=== PATIENT | male | born 1960 | race Caucasian/White ===

== ENCOUNTER → 2019-05-29 | Outpatient (CLI) | payer OTHER | LOC: BHSO 10:21 | DX: F43.10 Post-traumatic stress disorder, unspecified (principal) ==

== ENCOUNTER → 2019-06-13 | Outpatient (CLI) | payer OTHER | LOC: BHSO 13:31 | DX: F43.10 Post-traumatic stress disorder, unspecified (principal) ==

== ENCOUNTER → 2019-06-17 | Outpatient (CLI) | payer OTHER | LOC: BHSO 13:16 | DX: F43.10 Post-traumatic stress disorder, unspecified (principal) ==

== ENCOUNTER → 2019-06-24 | Outpatient (CLI) | payer OTHER | LOC: BHSO 13:22 | DX: F43.10 Post-traumatic stress disorder, unspecified (principal) ==

== ENCOUNTER → 2019-07-01 | Outpatient (CLI) | payer OTHER | LOC: BHSO 13:42 | DX: F43.10 Post-traumatic stress disorder, unspecified (principal) ==

== ENCOUNTER → 2019-07-15 | Outpatient (CLI) | payer OTHER | LOC: BHSO 13:06 | DX: F43.10 Post-traumatic stress disorder, unspecified (principal) ==

== ENCOUNTER → 2019-07-22 | Outpatient (CLI) | payer OTHER | LOC: BHSO 13:34 | DX: F43.10 Post-traumatic stress disorder, unspecified (principal) ==

== ENCOUNTER → 2019-07-29 | Outpatient (CLI) | payer OTHER | LOC: BHSO 13:44 | DX: F43.10 Post-traumatic stress disorder, unspecified (principal) ==

== ENCOUNTER → 2019-08-05 | Outpatient (CLI) | payer OTHER | LOC: BHSO 13:29 | DX: F43.10 Post-traumatic stress disorder, unspecified (principal) ==

== ENCOUNTER → 2019-08-19 | Outpatient (CLI) | payer OTHER | LOC: BHSO 13:39 | DX: F43.10 Post-traumatic stress disorder, unspecified (principal) ==

== ENCOUNTER → 2019-08-26 | Outpatient (CLI) | payer OTHER | LOC: BHSO 13:32 | DX: F43.10 Post-traumatic stress disorder, unspecified (principal) ==

== ENCOUNTER → 2019-09-02 | Outpatient (CLI) | payer OTHER | LOC: BHSO 13:10 | DX: F43.10 Post-traumatic stress disorder, unspecified (principal) ==

== ENCOUNTER → 2019-09-16 | Outpatient (CLI) | payer OTHER | LOC: BHSO 13:26 | DX: F43.10 Post-traumatic stress disorder, unspecified (principal) ==

== ENCOUNTER → 2019-09-23 | Outpatient (CLI) | payer OTHER | LOC: BHSO 13:14 | DX: F43.10 Post-traumatic stress disorder, unspecified (principal) ==

== ENCOUNTER → 2019-09-30 | Outpatient (CLI) | payer OTHER | LOC: BHSO 13:35 | DX: F43.10 Post-traumatic stress disorder, unspecified (principal) ==

== ENCOUNTER → 2019-10-07 | Outpatient (CLI) | payer OTHER | LOC: BHSO 13:20 | DX: F43.10 Post-traumatic stress disorder, unspecified (principal) ==

== ENCOUNTER → 2019-10-14 | Outpatient (CLI) | payer OTHER | LOC: BHSO 13:33 | DX: F43.10 Post-traumatic stress disorder, unspecified (principal) ==

== ENCOUNTER → 2019-11-11 | Outpatient (CLI) | payer OTHER | LOC: BHSO 13:44 | DX: F43.10 Post-traumatic stress disorder, unspecified (principal) ==

== ENCOUNTER → 2019-11-28 | Outpatient (CLI) | payer OTHER | LOC: BHSO 10:34 | DX: F43.10 Post-traumatic stress disorder, unspecified (principal) ==

== ENCOUNTER → 2019-12-09 | Outpatient (CLI) | payer OTHER | LOC: BHSO 13:28 | DX: F43.10 Post-traumatic stress disorder, unspecified (principal) ==

== ENCOUNTER → 2019-12-23 | Outpatient (CLI) | payer OTHER | LOC: BHSO 13:12 | DX: F43.10 Post-traumatic stress disorder, unspecified (principal) ==

== ENCOUNTER → 2020-01-06 | Outpatient (CLI) | payer OTHER | LOC: BHSO 13:27 | DX: F43.10 Post-traumatic stress disorder, unspecified (principal) ==

== ENCOUNTER → 2020-03-02 | Outpatient (CLI) | payer OTHER | LOC: BHSO 12:59 | DX: F43.10 Post-traumatic stress disorder, unspecified (principal) ==

== ENCOUNTER 2024-04-18 05:37 | Day surgery (SDC) | payer OTHER ==
[~2024-04-18] VITALS: Ht 175.3 cm; Wt 91.2 kg
[2024-04-18] VITALS (10 sets, daily range): BP systolic 101–122; BP diastolic 53–84; PULSE 50–68; TEMP 97.7–98.3
[~2024-04-18 05:37] MED LIST: CRESTOR20 MG PO; LAMISIL250 M1 PO; LR 1,000 ML IV SCH; ZOLOFT 100MG100 MG PO
--- NOTE | 2024-04-18 06:02 | NUR ---
Patient states develops rash if taking Aspirin. State that he is able to tolerate NSAIDS without reaction and Celebrex was given as ordered per [facility] protocol.
[2024-04-18] MEDS ORDERED: Celecoxib 200 MG CAP PO SCH (06:30)
[2024-04-18] MEDS ORDERED: Acetaminophen 500 MG TAB PO SCH ×2 (06:30→08:02)
[2024-04-18] MEDS ORDERED: Gabapentin 100 MG CAP PO SCH (06:30)
--- NOTE | 2024-04-18 06:45 | NUR ---
ORDER RECEIVED FOR TYPE AND SCREEN FROM ANGIE STRONG AND LAB NOTIFIED OF NEW ORDERS. 0655 TYPE AND SCREEN WAS DRAWN BY LAB OR ORDERED.
[2024-04-18] MEDS ORDERED: fentaNYL 50 MCG/ML 2 ML VIAL ONE ×2 (06:55→07:59)
[2024-04-18] MEDS ORDERED: Rocuronium 50 MG/5 ML Multi-Dose VIAL ONE ×3 (06:55→09:11)
[2024-04-18] MEDS ORDERED: Midazolam 2 MG/2 ML VIAL ONE (06:55)
[2024-04-18] MEDS ORDERED: NS 250 ML IV ONE (06:56)
[2024-04-18] MEDS ORDERED: Succinylcholine PF 200 MG/10 ML SYRINGE IV ONE (06:56)
[2024-04-18] MEDS ORDERED: Glycopyrrolate 0.2 MG/ML 1 ML VIAL ONE (06:57)
[2024-04-18] MEDS ORDERED: dexAMETHasone 10 MG/ML VIAL ONE (06:57)
[2024-04-18] MEDS ORDERED: Phenylephrine 10 MG/ML VIAL ONE (06:57)
[2024-04-18] MEDS ORDERED: NS 10 ML IV ONE ×2 (06:57→09:11)
[2024-04-18] MEDS ORDERED: Ondansetron 4 MG/2 ML VIAL ONE (06:57)
[2024-04-18] MEDS ORDERED: NS 100 ML IV ONE (07:01)
[2024-04-18] MEDS ORDERED: Ondansetron 4 MG/2 ML VIAL IV PRN ×2 (07:15→08:45)
[2024-04-18] MEDS ORDERED: LR 1,000 ML IV SCH (07:15)
[2024-04-18] MEDS ORDERED: Hyoscyamine 0.125 MG Sublingual TAB SL PRN (07:15)
[2024-04-18] MEDS ORDERED: Morphine 4 MG/ML VIAL IV PRN (07:15)
[2024-04-18] MEDS ORDERED: Ketorolac 15 MG/ML VIAL IV SCH (07:15)
[2024-04-18] MEDS ORDERED: oxyCODONE 5 MG TAB PO PRN ×2 (07:15)
[2024-04-18] MEDS ORDERED: Naloxone 0.4 MG/ML VIAL IV PRN (07:15)
[2024-04-18] MEDS ORDERED: ePHEDrine 50 MG/ML VIAL ONE (07:51)
[2024-04-18] MEDS ORDERED: fentaNYL 50 MCG/ML 1 ML SYRINGE/VIAL [PACU/SDC ONLY] IV PRN (08:45)
[2024-04-18] MEDS ORDERED: HYDROmorphone 1 MG/1 ML SYRINGE [PACU/SDC ONLY] IV PRN (08:45)
[2024-04-18] MEDS ORDERED: droPERidol 2.5 MG/ML 2 ML VIAL IV PRN (08:45)
[2024-04-18] MEDS ORDERED: hydrALAZINE 20 MG/ML 1 ML VIAL IV PRN (08:45)
[2024-04-18] MEDS ORDERED: Topical Skin Adhesive 1 EACH (1 ML) TOP ONE (10:15)
[2024-04-18] MEDS ORDERED: ceFAZolin 2 G in Water For Injection,Sterile 20 ML IV SCH (11:02)
--- NOTE | 2024-04-18 20:00 | NUR ---
Patient assessed at this time, see shift assessment, A/Ox4, reports minimal pain PS of 2/10, with IV infusing well on right hand with LR at 125cc/hr, with INT infusing well on left forearm, passing gas, denies nausea/vomiting, wears CPAP at HS, with downey to dependent drainage, denies further needs, call light and personal items within reach, will continue to monitor.
[2024-04-19] VITALS (7 sets, daily range): BP systolic 117–134; BP diastolic 64–75; PULSE 47–50; TEMP 98–98.7
--- NOTE | 2024-04-19 06:03 | NUR ---
Patient awake at this time, denies further needs, still with IV infusing well on right hand, with downey to dependent drainage.
[2024-04-19 06:37] LABS: HEMOGLOBIN 14.5 g/dl (13.5-18.0)
[2024-04-19 07:01] LABS: CALCIUM 8.5 mg/dL (8.4-10.2); CREATININE, serum 1.85 mg/dL (0.72-1.25); POTASSIUM 4.2 mEq/L (3.5-4.5)
--- NOTE | 2024-04-19 09:36 | NUR ---
Pt resting in bed with discomfort 2/10 in abdomen. Pt denclines scheduled toradol and tylenol at this time. Steady gait around room, downey catheter to dependent drainage, education provided on draining bag for discharge. Pt plans to shower today and possible dicharge. Dr. Romero at bedside at this time. Will continue to monitor.
--- NOTE | 2024-04-19 10:28 | NUR ---
sorting cows worker met with pt and , Cassidy [phone] to discuss discharge planning. He intends to return to [place] upon discharge with his . He sees Dr Paredes at [place] for PCP needs and obtains medications from [facility] with no issues. He reports to be independent with ADLS and uses a CPAP for DME. He has a DPO[facility]-HC at home listing his . Pt has no further concerns and was up walking with SW. Discharge Plan: home
--- NOTE | 2024-04-19 11:43 | NUR ---
Data: Patient accepted Automobile Detailer visit offered during Automobile Detailer rounds. Patient expects to be discharged today. Assessment: Patient has very positive attitude about his surgery and about the pending lab results. Hopeful that the cancer has been removed. Plan of Care: Automobile Detailer offered supportive listening and prayer. Patient expressed his gratitude. Chaplains will remain available as needed/requested while Patient is admitted to this hospital.
--- NOTE | 2024-04-19 13:26 | NUR ---
Pt and family provided with discharge instructions. Discussed follow up appointment, over the counter medications for pain control, and signs of infection. Retrun demonstration provided for leg bag change and emptying downey bag. No questions at this time. Pt and belongings escorted out of building at this time.
== END 2024-04-19 13:32 | disposition home or self-care (01) ==
LOC: SDCO 05:37 → SURG 11:30 → SDCO 04-19 13:32
PROVIDERS: Urology
DX: C61 Malignant neoplasm of prostate (principal)
CPT/HCPCS: OP; A4314; A9284; J0690; J1100; J1170; J1885; J2250; J2371; J2405; J2704; J3010; J7050; J7120